=== PATIENT | female | born 1990 | race Two or more races ===

== ENCOUNTER → 2024-09-05 | Outpatient (CLI) | payer OTHER, SELFPAY ==
--- NOTE | 2024-09-05 14:30 | XR_ITS ---
Examination: Breast ultrasound complete, bilateral Date and time of exam: September 05, 2024 1428 hours INDICATIONS: Bilateral breast pain beginning 2 months ago, left breast sonogram September 06, 2023 3:00 intramammary lymph node 6 x 6 mm Technique: Real-time grayscale ultrasonographic imaging bilateral breasts, including all 4 quadrants as well as nipple retroareolar and axillary regions. Findings: Sonographic images right breast No cystic or solid mass 3.5 cm axillary lymph node Sonographic images left breast 3:00 intramammary lymph node 7 x 4 x 7 mm Axillary benign-appearing lymph node 19 mm IMPRESSION: BI-RADS Category 2: Benign findings
== END | disposition home or self-care (01) ==
PROVIDERS: PCP Specialist; Referring Provider Specialist; Visit Provider Specialist
DX: N64.4 Mastodynia (principal)
CPT/HCPCS: 76641